=== PATIENT | male | born 1975 | race African-American/Black ===

== ENCOUNTER 2020-11-12 11:12 | Emergency (ER) | payer MEDICAID, OTHER ==
[~2020-11-12] VITALS: Ht 182.9 cm; Wt 113.4 kg
[2020-11-12] MEDS ORDERED: cloNIDine HCL 0.1 MG TAB ONE (11:33)
[2020-11-12] MEDS ORDERED: cloNIDine HCL 0.1 MG TAB PO ONE (11:45)
[2020-11-12] MEDS ORDERED: ACETAMINOPHEN 325 MG TAB PO ONE (12:45)
[2020-11-12 13:00] VITALS: BP 160/110
== END 2020-11-12 13:05 | disposition home or self-care (01) ==
LOC: ER 11:12
DX: M27.2 Inflammatory conditions of jaws (principal); F17.210 Nicotine dependence, cigarettes, uncomplicated

== ENCOUNTER 2020-11-14 11:45 | Emergency (ER) | payer MEDICAID ==
[~2020-11-14] VITALS: Ht 182.9 cm; Wt 113.4 kg
[2020-11-14 14:04] VITALS: BP 165/98
== END 2020-11-14 14:14 | disposition home or self-care (01) ==
LOC: ER 11:45
DX: F17.210 Nicotine dependence, cigarettes, uncomplicated (principal); Z48.817 Encounter for surgical aftercare following surgery on the skin and subcutaneous tissue; Z48.01 Encounter for change or removal of surgical wound dressing